=== PATIENT | female | born 1965 | race African-American/Black ===

== ENCOUNTER 2017-05-06 12:15 | Emergency (ER) | payer SELFPAY ==
[2017-05-06 12:23] VITALS: BP 132/78; PULSE 94; TEMP 99.8; BMI 32.3
[2017-05-06] MEDS ORDERED: IBUPROFEN 600 MG TABLET (FP) PO ONE ×2 (12:48→13:01)
[2017-05-06 13:00] LABS: URINE APPEARANCE CLEAR; URINE BILIRUBIN NEGATIVE (NEGATIVE); URINE BLOOD 1+ (NEGATIVE); URINE COLOR LTYELLOW; URINE GLUCOSE (UA) NEGATIVE (NEGATIVE); URINE KETONE NEGATIVE (NEGATIVE); URINE NITRITE NEGATIVE (NEGATIVE); URINE PROTEIN NEGATIVE (NEGATIVE); URINE UROBILINOGEN NEGATIVE mg/dL (0.2-1.0)
--- NOTE | 2017-05-06 13:06 | PDOC ---
History of Present Illness - General Chief Complaint: Cold Symptoms Stated Complaint: WEAKNESS Time Seen by Provider: 05/06/17 12:37 History Source: Patient Exam Limitations: No Limitations - History of Present Illness Initial Comments: 05/06/17 13:03 52-year-old female who presents to the emergency room for evaluation myalgia, cough, fever and dysuria since yesterday. Patient denies chest pain, abdominal pain, difficulty swallowing, or difficulty breathing. Timing/Duration: 24 hours Severity: moderate Associated Symptoms: reports: cough, fever/chills, weakness Past History - Travel Traveled outside of the country in the last 30 days: No - Past Medical History Allergies/Adverse Reactions: Allergies Allergy/AdvReac Type Severity Reaction Status Date / Time No Known Allergies Allergy Verified 05/06/17 12:20 Home Medications: Ambulatory Orders Levothyroxine [Synthroid] 175 mcg PO DAILY 07/31/12 COPD: No Thyroid Disease: Yes - Suicide/Smoking/Psychosocial Hx Smoking Status: No Smoking History: Never smoked Number of Cigarettes Smoked Daily: 0 Information on smoking cessation initiated: No Hx Alcohol Use: No Drug/Substance Use Hx: No Substance Use Type: None Patient Lives Alone: No Lives with/in: spouse/SO Review of Systems - Review of Systems Able to Perform ROS?: Yes Constitutional: Yes: Chills, Fever, Malaise HEENTM: No: Symptoms Reported Respiratory: Yes: Cough Cardiac (ROS): No: Symptoms Reported ABD/GI: No: Symptoms Reported : Yes: Dysuria, Frequency Musculoskeletal: No: Symptoms Reported Integumentary: No: Symptoms Reported Neurological: No: Symptoms reported *Physical Exam - Vital Signs Last Vital Signs Temp Pulse Resp BP Pulse Ox 99.8 F H 94 H 18 132/78 100 05/06/17 12:20 05/06/17 12:20 05/06/17 12:20 05/06/17 12:20 05/06/17 12:20 - Physical Exam General Appearance: Yes: Nourished, Appropriately Dressed. No: Apparent Distress HEENT: positive: EOMI, MEGAN, TMs Normal, Pharynx Normal. negative: Pale Conjunctivae Neck: positive: Supple Respiratory/Chest: positive: Lungs Clear, Normal Breath Sounds. negative: Respiratory Distress, Accessory Muscle Use Cardiovascular: positive: Regular Rhythm, Regular Rate. negative: Murmur Gastrointestinal/Abdominal: positive: Soft. negative: Tenderness Integumentary: positive: Normal Color, Warm, Moist Neurologic: positive: Motor Strength 5/5 (ambulatory) ED Treatment Course - Medications Given in the ED: ED Medications Discontinued Medications Generic Name Dose Route Start Last Admin Trade Name Blade PRN Reason Stop Dose Admin Ibuprofen 600 mg 05/06/17 12:48 05/06/17 13:02 Motrin - PO 05/06/17 12:49 600 mg ONCE ONE Administration Medical Decision Making - Medical Decision Making 05/06/17 13:05 Patient with URI complaints along with urinary complaints. Patient states was low-grade temp here in the ER complaining of myalgia. Patient ordered for Motrin , influenza and urine with urine culture. 05/06/17 13:40 Laboratory Tests 05/06/17 12:50 Urine Blood 1+ H Urine Nitrite Negative Ur Leukocyte Esterase 2+ H Influenza swab negative. Patient be discharged home with Macrobid. No previous urine culture on file. Patient denies previous UTI *DC/Admit/Observation/Transfer Diagnosis at time of Disposition: UTI (urinary tract infection) Qualifiers: Urinary tract infection type: acute cystitis Hematuria presence: with hematuria Qualified Code(s): N30.01 - Acute cystitis with hematuria - Discharge Dispostion Disposition: HOME Condition at time of disposition: Good - Referrals Referrals: Mahad Jimenez [Primary Care Provider] - - Patient Instructions Printed Discharge Instructions: DI for Urinary Tract Infection (UTI) Additional Instructions: Please take Motrin or Tylenol for discomfort and fever. Please drink plenty of fluids and take antibiotics until completed. - Post Discharge Activity
[2017-05-06 13:08] LABS: URINE LEUK ESTERASE 2+ (NEGATIVE)
== END 2017-05-06 14:13 | disposition home or self-care (01) ==
LOC: JERFT 12:15
DX: N30.01 Acute cystitis with hematuria (principal)
CPT/HCPCS: 81003; 81015; 87086; 87804; 99281-25

== ENCOUNTER 2019-04-17 19:09 | Emergency (ER) | payer SELFPAY ==
[2019-04-17 19:24] VITALS: TEMP 97.9; BMI 32.3
--- NOTE | 2019-04-17 20:00 | PDOC ---
History of Present Illness - General Chief Complaint: Blood Pressure Problem Stated Complaint: HYPERTENTION Time Seen by Provider: 04/17/19 19:30 - History of Present Illness Initial Comments: 04/17/19 19:55 53 yo F PMH Graves disease s/p radiation on levothyroxine, ectopic , C- section, presenting with presyncope. States that she had an episode of "dizziness like I was going to pass out" while with her family, no fall, no LOC. They checked her BP, which was 200/100. Reports that she does not follow with any doctors due to not having insurance. States that she has also been having intermittent episodes of sternal chest pain and pre-syncope for the past several weeks, which she had believed was due to stress 2/2 her leaving her. Had also had L sided headaches during these episodes, but notes that she had no headache today. Admits that she does not take her Synthroid consistently. Further complains of foul smelling urine for the past several days and dysuria. Specifically denies current CP, SOB, abd pain, fevers/chills, constipation/ diarrhea. Endorses pre-syncope and dysuria. Past History - Past Medical History Allergies/Adverse Reactions: Allergies Allergy/AdvReac Type Severity Reaction Status Date / Time No Known Allergies Allergy Verified 04/17/19 19:24 Home Medications: Ambulatory Orders Levothyroxine [Synthroid -] 175 mcg PO DAILY 07/31/12 Ibuprofen 800 mg PO TID PRN #20 tablet 10/29/17 Methocarbamol [Robaxin -] 500 mg PO TID PRN #21 tablet 10/29/17 Cephalexin [Keflex] 500 mg PO BID #10 capsule 04/17/19 COPD: No Thyroid Disease: Yes - Psycho Social/Smoking Cessation Hx Smoking Status: No Smoking History: Never smoked Have you smoked in the past 12 months: No Number of Cigarettes Smoked Daily: 0 Information on smoking cessation initiated: No Hx Alcohol Use: No Drug/Substance Use Hx: No Substance Use Type: None Review of Systems - Review of Systems Comments:: 04/17/19 22:19 GENERAL/CONSTITUTIONAL: No fever or chills. No weakness. HEAD, EYES, EARS, NOSE AND THROAT: No change in vision. No ear pain or discharge. No sore throat. CARDIOVASCULAR: No chest pain or shortness of breath. Positive for presyncope. RESPIRATORY: No cough, wheezing, or hemoptysis. GASTROINTESTINAL: No nausea, vomiting, diarrhea or constipation. GENITOURINARY: No dysuria, frequency, or change in urination. MUSCULOSKELETAL: No joint or muscle swelling or pain. No neck or back pain. SKIN: No rash NEUROLOGIC: No headache, vertigo, loss of consciousness, or change in strength/ sensation. ENDOCRINE: No increased thirst. No abnormal weight change. HEMATOLOGIC/LYMPHATIC: No anemia, easy bleeding, or history of blood clots. ALLERGIC/IMMUNOLOGIC: No hives or skin allergy *Physical Exam - Vital Signs Last Vital Signs Temp Pulse Resp BP Pulse Ox 97.9 F 98 H 17 182/105 H 98 04/17/19 19:21 04/17/19 19:21 04/17/19 19:21 04/17/19 19:21 04/17/19 19:21 - Physical Exam 04/17/19 22:19 Gen: well-developed, well-nourished, NAD Neuro: AAOX4, CN II-XII intact, FTN intact, EOMI, PERRLA, 5/5 strength, SILT HEENT: atraumatic, normocephalic, dry mucous membranes Neck: trachea midline, supple CV: regular rate, regular rhythm, no murmurs, rubs, or gallops Pulm: CTA b/l, no wheezing Abd: soft, non-distended, non-tender MSK: full ROM, intact pulses Extr: no edema, no deformities Skin: warm, dry Vital Signs - Vital Signs #1 Time: 22:45 Blood Pressure: 184/107 Heart Score/ECG Review - History History: Moderately suspicious - Electrocardiogram EKG: Normal - Age Age: 45-65 - Risk Factors Risk Factors Heart Score: Yes Hx Obesity Based on the list above the patient has:: 1-2 risk factors - Troponin Troponin: </= normal limit - Score Heart Score - Total: 3 ED Treatment Course - LABORATORY CBC & Chemistry Diagram: 04/17/19 20:00 04/17/19 20:00 - RADIOLOGY Radiology Studies Ordered: Category Date Time Status HEAD CT WITHOUT CONTRAST [CT] Stat CT Scan 04/17/19 19:46 Ordered CHEST PA & LAT [RAD] Stat Radiology 04/17/19 19:38 Ordered Medical Decision Making - Medical Decision Making 04/17/19 20:01 Concern for ACS vs dysrrythmia vs intracranial hemorrhage. - CBC, CMP - EKG, trop - UA/UC - reassess 04/17/19 22:15 CBC, CMP wnl. Trop negative. CT head without acute pathology. CXR with no acute pathology. Will dc with close follow up at [facility]. Will send Keflex for urinary symptoms. Discharge - Discharge Information Problems reviewed: Yes Clinical Impression/Diagnosis: Pre-syncope Condition: Stable Disposition: HOME - Additional Discharge Information Prescriptions: Cephalexin [Keflex] 500 mg PO BID #10 capsule - Follow up/Referral Referrals: [facility] [Provider Group] - Patient Discharge Instructions Patient Printed Discharge Instructions: DI for High Blood Pressure Additional Instructions: You were seen with high blood pressure. Your EKG, chest X ray, and head CT did not show any concerning findings. However, it is extremely important that you follow up with a primary care doctor as soon as possible to get your blood pressure under control. We have given you a referral number, please call and make an appointment. Return to the ED if you develop concerning symptoms such as crushing chest pain or shortness of breath. We have also sent Keflex for your urinary symptoms. Take it 2 times a day for the next 5 days. - Post Discharge Activity
--- NOTE | 2019-04-17 20:03 | PDOC ---
Attending Attestation - Resident Resident Name: GenerenataJonathan - ED Attending Attestation I have performed the following: I have examined & evaluated the patient, The case was reviewed & discussed with the resident, I agree w/resident's findings & plan - HPI HPI: 04/17/19 23:18 53 yo F PMH Graves disease s/p radiation on levothyroxine, ectopic , C- section, presenting with presyncope/dizziness/ Pt States that she had an episode of "dizziness like I was going to pass out" while with her family, no fall, no LOC. They checked her BP, which was 200/100. admits to intermittent episodes of anterior CP and near syncope x several weeks , which pt admits to stress with her recently leaving her about 2 months ago. she admits to association with left sided headaches during episodes , currently asymptomatic. BP 200/100s Reports that she does not follow with any doctors due to not having insurance. poorly compliant with taking synthroid for her hypothyroidism. Further complains of foul smelling urine for the past several days and dysuria. Specifically denies current CP, SOB, abd pain, fevers/chills, constipation/ diarrhea. no leg swelling. 04/18/19 01:56 - Physicial Exam PE: 04/17/19 20:02 Agree with the resident's HPI and PE as documented in the electronic medical record. NAD, well appearing, alert, awake, oriented appropriately. EOMI, PERRL, nl conjunctiva, anicteric; neck supple. lungs clear, RRR, no murmur. abdomen soft nontender. no rebound, guarding. Back nontender. FISHMAN x4, no focal neuro deficits. Clear speech no peripheral edema. normal color for ethnicity, WWP. speech clear. gait stable. 04/17/19 23:18 04/18/19 01:58 - Medical Decision Making 04/17/19 20:02 Vital Signs Temp Pulse Resp BP Pulse Ox 97.9 F 98 H 17 182/105 H 98 04/17/19 19:21 04/17/19 19:21 04/17/19 19:21 04/17/19 19:21 04/17/19 19:21 vs reviewed, afebrile, Hypertensive here 182/105 no tachy/ no respiratory sx. 04/17/19 22:19 labs and lytes wnl. trop neg, reassuring, unlikely ACS or cardiac. UA prelim with infection. treat with keflex for UTI f/u cultures head CT. hypothyroid state with elevated tsh. poorly compliant with meds rpt VS - remains HTN, but otherwise asymptomatic no e/o end organ damage cxr clear, no effusion, no ptx, normal interstitium. no pna. normal cardiac silhouette head CT neg for acute pathology pt improved with tylenol. neuro intact, mental status in tact, no focal deficits. no cp or sob. instructions for clinical recheck for HTN, no meds indicated at this time, as needs repeat and primary followup will need to be followed up for elevated tsh, hypothyroid state and initiation of agent such as synthroid. Pt to be discharged in stable condition. Patient and family made aware of clinical impression, treatment recommendations and disposition plan, return precautions discussed (including but not limited to new or persistent/worsening symptoms, pain, fevers, or signs of infection, chest pain, respiratory distress , inability to tolerate oral intake, dehydration, syncope, or neurologic changes ). Follow up with PMD as recommended, follow up information provided, take medications as instructed for duration of time. continue with supportive care, avoid triggers and precipitants. All questions answered to patient's satisfaction and expressed understanding and comfort with this. At the time of discharge, the patient is alert, clinically improved, tolerating po and verbalizes understanding of instructions, satisfied with the care received and felt comfortable with the plan. Patient does not suffer from an acute life- threatening medical condition at this time and is safe for outpatient follow- up. 04/17/19 22:20 04/17/19 23:15 Heart Score/ECG Review #1 ECG reviewed & interpreted by me at: 20:40 General ECG Interpretation: Sinus Rhythm, Normal Rate, Normal Intervals Compared to previous ECG there are: Previous ECG unavail 04/17/19 22:18 EKG normal sinus rhythm 63 bpm, no interval abnormalities, narrow QRS, ST and T wave segments and morphology normal. Nonspecific T wave abnormality/TWI isolated in III only.
[2019-04-17 20:21] LABS: BASO % 1.3 % (0-2.0); EOS % 2.3 % (0-4.5); HEMATOCRIT 37.3 % (32.4-45.2); HEMOGLOBIN 12.4 GM/dL (10.7-15.3); LYMPH % 37.6 % (8-40); MCH 30.2 pg (25.7-33.7); MCHC 33.3 g/dl (32.0-36.0); MEAN CELL VOLUME 90.8 fl (80-96); MEAN PLT VOLUME 8.4 fl (7.5-11.1); MONO % 7.2 % (3.8-10.2); NEUT % 51.6 % (42.8-82.8); PLATELET COUNT 304 K/MM3 (134-434); RBC 4.11 M/mm3 (3.60-5.2); RDW 15.6 % (11.6-15.6); WHITE BLOOD COUNT 6.8 K/mm3 (4.0-10.0)
[2019-04-17 20:42] LABS: BILIRUBIN,TOTAL 0.4 mg/dL (0.2-1); BLOOD UREA NITROGEN 10.7 mg/dL (7-18); CALCIUM 8.5 mg/dL (8.5-10.1); POTASSIUM 3.4 mmol/L (3.5-5.1); TOT PROT 7.5 g/dl (6.4-8.2)
[2019-04-17 20:51] LABS: EPI CELLS 1.9 /HPF (0-5/HPF); HYALINE CASTS 0 /lpf (0-8); URINE APPEARANCE CLEAR; URINE BILIRUBIN NEGATIVE (NEGATIVE); URINE COLOR YELLOW; URINE GLUCOSE (UA) NEGATIVE (NEGATIVE); URINE KETONE NEGATIVE (NEGATIVE); URINE LEUK ESTERASE TRACE (NEGATIVE); URINE NITRITE NEGATIVE (NEGATIVE); URINE PROTEIN NEGATIVE (NEGATIVE); URINE RBC 1 /hpf (0-4); URINE UROBILINOGEN 0.2 mg/dL (0.2-1.0); URINE WBC 12 /hpf (0-5)
[2019-04-17 22:51] VITALS: BP 184/107; PULSE 70
[2019-04-17] MEDS ORDERED: CEPHALEXIN MONOHYDRATE 500 MG CAPSULE (UD) PO ONE (23:15)
[2019-04-17] MEDS ORDERED: CEPHALEXIN MONOHYDRATE 500 MG CAPSULE (UD) ONE (23:20)
--- NOTE | 2019-04-18 11:53 | EKG ---
Test Reason : Blood Pressure : / mmHG Vent. Rate : 063 BPM Atrial Rate : 063 BPM P-R Int : 154 ms QRS Dur : 074 ms QT Int : 410 ms P-R-T Axes : 038 070 032 degrees QTc Int : 419 ms POOR DATA QUALITY, INTERPRETATION MAY BE ADVERSELY AFFECTED NORMAL SINUS RHYTHM NORMAL ECG NO PREVIOUS ECGS AVAILABLE Confirmed by ELVIRA KRAUSE MD ([id number]) on 04/18/2019 11:52:34 AM Referred By: Confirmed By:ELVIRA KRAUSE MD
== END 2019-04-17 23:25 | disposition home or self-care (01) ==
LOC: JER 19:09
DX: R55 Syncope and collapse (principal); E05.00 Thyrotoxicosis with diffuse goiter without thyrotoxic crisis or storm
CPT/HCPCS: 36415; 70450-TC; 71046-TC-FY; 80053; 81003; 82550; 82553; 84443; 84484; 85025; 87086; 93005; 93010; 99283-25

== ENCOUNTER 2020-06-21 17:24 | Emergency (ER) | payer SELFPAY ==
[2020-06-21 17:38] VITALS: BP 158/98; PULSE 78; TEMP 97.9; BMI 36.9
[2020-06-21] MEDS ORDERED: KETOROLAC TROMETHAMINE 30 MG/1 ML VIAL IM ONE (18:02)
[2020-06-21] MEDS ORDERED: KETOROLAC TROMETHAMINE 30 MG/1 ML VIAL ONE (18:09)
== END 2020-06-21 18:18 | disposition home or self-care (01) ==
LOC: JERFT 17:24
PROC: 3E0233Z Introduction of Anti-inflammatory into Muscle, Percutaneous Approach (ICD-10-PCS; principal; 2020-06-21)
DX: M25.561 Pain in right knee (principal)
CPT/HCPCS: 73562-TC-RT-FY; 99284-25

== ENCOUNTER 2023-03-09 09:48 | Emergency (ER) | payer OTHER ==
[2023-03-09 09:57] VITALS: BP 164/78; PULSE 85; RESP 18; TEMP 98.2; BMI 34.4
[2023-03-09] MEDS ORDERED: MAG HYDROX/ALH/SMC/DPHA/LIDO 240 ML MOUTHWASH MM SCH (12:00)
== END 2023-03-09 11:20 | disposition home or self-care (01) ==
LOC: JERFT 09:48
DX: R07.0 Pain in throat (principal); R09.82 Postnasal drip; R13.10 Dysphagia, unspecified; Z20.822 Contact with and (suspected) exposure to COVID-19
CPT/HCPCS: 0241U-QW; 87651; 99283-25